=== PATIENT | female | born 1945 | race Caucasian/White ===

== ENCOUNTER 2016-04-29 15:09 | Emergency (ER) | payer MEDICARE, BC ==
[2016-04-29] MEDS ORDERED: NS 0.9% 1000 ML* 1,000 ML IV ONE (16:07)
[2016-04-29] MEDS ORDERED: Ondansetron INJ* 2 MG/ML VIAL IV ONE (16:08)
[2016-04-29] MEDS ORDERED: Morphine INJ* 4 MG/ML 1 ML CARPUJECT IV ONE (16:08)
--- NOTE | 2016-04-29 17:56 | ED ---
Abdominal Pain/Female - HPI Summary HPI Summary: The patient is a 71 year old female presenting to ED for complaint of generalized abdominal pain and nausea x4 days. Admits to decreased PO intake with piece of toast eaten at breakfast today. Friday experienced chills, but denies known fever. Denies nasal symptoms, sore throat, cough, shortness of breath, chest pain, neck or back pain, vomiting, diarrhea, dysuria, hematuria, change in voiding, vaginal complaint. History of HTN, pulmonary stenosis, and depression. Right ankle surgery. Denies FH. PCP: Dr. Weber. SH: . Lives independently at home. - History of Current Complaint Chief Complaint: EDAbdPain Stated Complaint: ABD PAIN,NAUSEA-SENT FROM [facility] Time Seen by Provider: 04/29/16 16:06 Pain Intensity: 5 Allergies/Adverse Reactions: Allergies Allergy/AdvReac Type Severity Reaction Status Date / Time Pregabalin [From Lyrica] Allergy Dizziness Verified 04/29/16 15:30 Lactose Intolerance (GI) AdvReac Intermediate GI Upset Verified 04/29/16 15:30 PMH/Surg Hx/FS Hx/Imm Hx Endocrine/Hematology History: Denies: Hx Diabetes, Hx Thyroid Disease Cardiovascular History: Reports: Hx Hypertension, Other Cardiovascular Problems/ Disorders - congenital pulmonic stenosis Respiratory History: Denies: Hx Asthma, Hx Chronic Obstructive Pulmonary Disease (COPD) GI History: Denies: Hx Ulcer Musculoskeletal History: Denies: Hx Osteoporosis Neurological History: Denies: Hx Seizures Psychiatric History: Reports: Hx Anxiety, Hx Depression - She does not feel like hurting herself or others. Denies: Hx Eating Disorder, Hx Schizophrenia, Hx Bipolar Disorder, Hx of Violent Episodes Against Others - Surgical History Surgery Procedure, Year, and Place: 15 years ago - [place]. 1995Right Ankle repair - pins Infectious Disease History: No Infectious Disease History: Denies: Hx Clostridium Difficile, Hx Hepatitis, Hx Human Immunodeficiency Virus (HIV), Hx of Known/Suspected MRSA, Hx Shingles, Hx Tuberculosis, Hx Known/ Suspected VRE, Hx Known/Suspected VRSA, History Other Infectious Disease, Traveled Outside the [place] in Last 30 Days - Family History Known Family History: Positive: None - Social History Alcohol Use: None Hx Substance Use: No Substance Use Type: Reports: None Hx Tobacco Use: Yes Smoking Status (MU): Former Smoker Review of Systems Positive: Chills. Negative: Fever ENT: Negative Negative: Sore Throat, Nasal Discharge Cardiovascular: Negative Negative: Chest Pain Respiratory: Negative Negative: Shortness Of Breath, Cough Positive: Abdominal Pain, Nausea. Negative: Vomiting, Diarrhea Genitourinary: Negative Negative: dysuria, frequency, flank pain, hematuria Musculoskeletal: Negative Negative: Arthralgia, Myalgia All Other Systems Reviewed And Are Negative: Yes Physical Exam Triage Information Reviewed: Yes Vital Signs On Initial Exam: Initial Vitals Temp Pulse Resp BP Pulse Ox 98.8 F 83 16 142/88 99 04/29/16 15:30 04/29/16 15:30 04/29/16 15:30 04/29/16 15:30 04/29/16 15:30 Vital Signs Reviewed: Yes Appearance: Positive: Well-Appearing, No Pain Distress, Well-Nourished Skin: Positive: Warm, Skin Color Reflects Adequate Perfusion, Dry Eyes: Positive: Other: - Anicteric ENT: Positive: Hearing grossly normal, Other - Oral mucosa moist Neck: Positive: Supple Respiratory/Lung Sounds: Positive: Clear to Auscultation, Breath Sounds Present. Negative: Decreased Breath Sounds, Rales, Rhonchi, Wheezes, Unable to speak in full sentences Cardiovascular: Positive: Normal - radial pulse 2+, RRR, S1, S2. Negative: Murmur, Rub, Tachycardia, Leg Edema Left, Leg Edema Right Abdomen Description: Positive: No Organomegaly, Soft, Other: - mild tenderness epigastric and RLQ; mild tympany RLQ. Negative: CVA Tenderness (R), CVA Tenderness (L), Distended, Guarding, Peritoneal Signs, Pulsatile Mass Bowel Sounds: Positive: Present Neurological: Positive: Normal - awake, alert, following commands, Facial Symmetry, Speech Normal Psychiatric: Positive: Normal AVPU Assessment: Alert - Akira Coma Scale Coma Scale Total: 15 Diagnostics - Vital Signs Vital Signs Temp Pulse Resp BP Pulse Ox 04/29/16 15:30 98.8 F 83 16 142/88 99 - Laboratory Result Diagrams: 04/29/16 17:45 04/29/16 17:45 Lab Statement: Any lab studies that have been ordered have been reviewed, and results considered in the medical decision making process. Re-Evaluation - Re-Evaluation First Eval Re-Evaluation Time: 20:39 Change: Improved Comment: Reported improved pain and nausea. Ambulated independently to bathroom to provide urine sample. Abdominal Pain Fem Course/Dx - Course Course Of Treatment: Discussed labs and imaging results which were grossly unremarkable. CT demonstrates antral gastritis vs partial gastric outlet obstruction. Will give since dose of Reglan and Rx Miralax. Advised to increase PO liquids and fiber. Advised to follow-up with PCP in 3-5 days. - Diagnoses Provider Diagnoses: Nausea, Abdominal pain, Constipation due to slow transit Discharge - Discharge Plan Condition: Stable Disposition: HOME Prescriptions: Polyethylene Glycol 3350* [Miralax*] 17 gm PO DAILY #30 packet Patient Education Materials: Constipation (ED), Abdominal Pain (ED) Referrals: Vanessa Weber MD [Primary Care Provider] - 3 Days
[2016-04-29 18:08] LABS: Hematocrit 40 % (35-47); Hemoglobin 13.3 g/dl (12.0-16.0); Mean Corpuscular HGB Conc 33 g/dl (31-36); Mean Corpuscular Hemoglobin 31 pg (27-31); Mean Corpuscular Volume 93 fL (80-97); Mean Platelet Volume 9 um3 (7.4-10.4); Red Blood Count 4.27 10^6/ul (4.0-5.4); Red Cell Distribution Width 13 % (10.5-15); White Blood Count 8.3 10^3/ul (3.5-10.8)
[2016-04-29 18:26] LABS: Albumin 3.9 g/dL (3.2-5.2); C Reactive Protein 2.62 mg/L (< 5.00); Calcium 8.8 mg/dL (8.6-10.3); EGFR African American 70.1 (>60); EGFR Non-African American 54.5 (>60); Magnesium 2.1 mg/dL (1.9-2.7); Potassium 3.6 mmol/L (3.5-5.0); Total Bilirubin 0.4 mg/dL (0.2-1.0); Total Protein 6.9 g/dL (6.4-8.9)
[2016-04-29] MEDS ORDERED: Iodixanol* (CONTRAST) 320 MG/ML 100 ML SDV IV ONE (18:35)
[2016-04-29] MEDS ORDERED: diPHENhydraMINE IV* 50 MG/ML 1 ml VIAL (BENADRYL) IV ONE (18:53)
--- NOTE | 2016-04-29 19:31 | RAD ---
Indication: Abdominal pain. Contrast: Administered 84.0 ml of VISAPAQUE 320 mgi/ml CT of the abdomen and pelvis was performed after oral and IV contrast administration.1 coronal and sagittal reconstructed images were obtained. The lung bases demonstrate no pleural fluid, nodules or masses. Heart is of normal size without evidence of pericardial effusion. Liver is normal in size. No focal lesions are noted although prominent extrahepatic ducts are noted likely due to postcholecystectomy state. Pancreatic duct is prominent although no evidence of abrupt termination is noted. The pancreas demonstrates no mass or pancreatic duct dilatation. The spleen is normal in size. No adrenal lesions are noted. The kidneys demonstrate symmetric nephrograms without hydronephrosis. No retroperitoneal lymphadenopathy is noted. No dilated loops of bowel are noted. CT of the pelvis demonstrates: To be filled with stool. Small bowel demonstrates no abnormal dilatation. No hernias are noted. Aorta demonstrates no evidence of abdominal aortic aneurysm. No dilated loops of bowel are noted. The uterus and ovaries are unremarkable. There is some distention of the stomach. There may be some wall thickening of the gastric antrum and the possibility of antral gastritis should BE considered. There is relative paucity of contrast in the duodenum and the possibility of a partial gastric outlet obstruction should BE considered.. IMPRESSION: NO ABNORMAL MASSES OR FLUID COLLECTIONS ARE IDENTIFIED.??THERE IS A MODERATELY DILATED STOMACH WITH A COLLAPSED DESCENDING DUODENUM. MILD WALL THICKENING OF THE GASTRIC ANTRUM IS PRESENT. POSSIBILITY OF ANTRAL GASTRITIS WITH PARTIAL DELAYED EMPTYING OF THE STOMACH OR PARTIAL GASTRIC OUTLET OBSTRUCTION SHOULD BE CONSIDERED.
--- NOTE | 2016-04-29 20:09 | ED ---
Jazmine Warren Anna, scribed for Mariam Baptiste MD on 04/29/16 at 1619 . Progress - Progress Note Progress Note: Patient is a 71 y/o female coming to [facility] presenting with nausea that began several days ago. She additionally reports abdominal pain and general weakness. Denies diarrhea and emesis. She had bronchitis two weeks ago. Labs, EKG, and CT abd/pelvis ordered. Course/Dx - Diagnoses Provider Diagnoses: Nausea The documentation as recorded by the Jazmine guidry Anna accurately reflects the service I personally performed and the decisions made by , Mariam Baptiste MD.
[2016-04-29] MEDS ORDERED: Metoclopramide TAB* 10 MG PO ONE (20:38)
[2016-04-29 21:16] LABS: Urine Bacteria Absent (Absent); Urine Bilirubin Negative (Negative); Urine Glucose Negative (Negative); Urine Nitrite Negative (Negative)
[2016-04-29 21:46] VITALS: BP 120/68
== END 2016-04-29 21:45 | disposition home or self-care (01) ==
LOC: ED 15:09
DX: R11.0 Nausea (principal); I10 Essential (primary) hypertension; F32.9 Major depressive disorder, single episode, unspecified; Z87.891 Personal history of nicotine dependence; R10.9 Unspecified abdominal pain; K59.00 Constipation, unspecified
CPT/HCPCS: 36415; 74177; 80053; 81003; 81015; 83605; 83690; 83735; 85025; 86140; 96374; 96375; 99283; J1200; J2270; J2405; Q9967

== ENCOUNTER 2016-11-02 18:21 | Emergency (ER) | payer MEDICARE, BC ==
[2016-11-02 18:27] VITALS: BP 152/84
[2016-11-02] MEDS ORDERED: Cephalexin CAP* 500 MG PO ONE (19:58)
--- NOTE | 2016-11-02 21:45 | UC ---
Stiven Warren Thomas, scribed for Domitila Gallo DO on 11/02/16 at 1921 . Complaint Female HPI - HPI Summary HPI Summary: The pt is a 72 y/o F presenting to E c/o dysuria, urinary frequency, and back pain for the past 5 days. The pain is described as burning and is rated 5/10. The patient has treated the pain with nothing CLOTH CLASSER. Her urine is cloudy. Pt additionally c/o possible subjective fever and abd pain (very minor). Pt denies N/V, recent confusion, and unsteady gait. She says that she waited 5 days because her is in hospice and has been busy and she thought her back pain might have resulted rom 3 days of vigorous gardening. PMHx: HTN. She also has a Hx of hematuria. PSHx: cholecystectomy, R ankle repair. SHx: former smoker (4 years), no alcohol use, no illicit drug use. - History Of Current Complaint Chief Complaint: UCGU Stated Complaint: BURNING URINATION Time Seen by Provider: 11/02/16 19:14 Hx Obtained From: Patient Onset/Duration: Lasting Days - 5, Still Present Timing: Constant Severity Currently: Moderate Pain Intensity: 5 Pain Scale Used: 0-10 Numeric Character: Burning Aggravating Factor(s): Urination Alleviating Factor(s): Nothing Associated Signs And Symptoms: Positive: Fever - possible subjective, Back Pain. Negative: Nausea - Allergies/Home Medications Allergies/Adverse Reactions: Allergies Allergy/AdvReac Type Severity Reaction Status Date / Time Pregabalin [From Lyrica] Allergy Dizziness Verified 04/29/16 15:30 Lactose Intolerance (GI) AdvReac Intermediate GI Upset Verified 04/29/16 15:30 PMH/Surg Hx/FS Hx/Imm Hx Previously Healthy: No Cardiovascular History: Hypertension GI/ History: Other Other GI/ History: Hx of hematuria Psychological History: Depression - Surgical History Surgical History: Yes Surgery Procedure, Year, and Place: 15 years ago - [place]. 1995Right Ankle repair - pins Other Surgical History: Right ankle with plates and pins. Gallbladder out. - Family History Known Family History: Positive: Other - POS: ETOH abuse - Social History Occupation: Retired - former nurse Lives: Assisted Living Alcohol Use: None Substance Use Type: None Smoking Status (MU): Former Smoker Review of Systems Constitutional: Fever - possible subjective Skin: Negative Eyes: Negative ENT: Negative Respiratory: Negative Cardiovascular: Negative Gastrointestinal: Abdominal Pain - "very minor" Genitourinary: Dysuria, Frequency, Other - POS: cloudy urine Motor: Negative Neurovascular: Negative Musculoskeletal: Other: - POS: back pain Neurological: Negative Psychological: Negative All Other Systems Reviewed And Are Negative: Yes Physical Exam Triage Information Reviewed: Yes Appearance: Well-Appearing, No Pain Distress, Well-Nourished Vital Signs: Initial Vital Signs Temp 98.6 F 11/02/16 18:24 Pulse 70 11/02/16 18:24 Resp 18 11/02/16 18:24 BP 152/84 11/02/16 18:24 Pulse Ox 100 11/02/16 18:24 Vital Signs Reviewed: Yes Eyes: Positive: Conjunctiva Clear. Negative: Discharge ENT: Positive: Hearing grossly normal. Negative: Muffled/hoarse voice Neck exam: Normal Neck: Positive: Supple Respiratory: Positive: Lungs clear, Normal breath sounds, No respiratory distress, No accessory muscle use Cardiovascular: Positive: RRR, No Murmur Abdomen Description: Positive: Soft, Other: - POS: suprapubic tenderness. Negative: CVA Tenderness (R), CVA Tenderness (L), Distended, Guarding Bowel Sounds: Positive: Present Musculoskeletal Exam: Normal Neurological: Positive: Alert, Muscle Tone Normal Psychological Exam: Normal Psychological: Positive: Age Appropriate Behavior Skin Exam: Normal Skin: Positive: Other - Warm, dry, normal color Diagnostics - Laboratory Diagnostic Studies Completed/Ordered: UA reveals 2+ blood, 3+ leukocyte esterase , and was negative for nitrates. During the [facility] course, the urinalysis results did not transfer electronically into [facility]; however, the nurse was able to provide a printout with the above results. The printout was confirmed with matching patient identification. Complaint Female Dx - Course Course Of Treatment: The pt is a 72 y/o F presenting to E c/o dysuria, urinary frequency, and back pain for the past 5 days. She additionally c/o back pain. The pain is described as burning and is rated 5/10. The patient has treated the pain with nothing CLOTH CLASSER. Her urine is cloudy. Pt additionally c/o subjective fever and abd pain (very minor). Pt denies N/V, recent confusion, and unsteady gait. She says that she waited 5 days because her is in hospice and has been busy. PMHx: HTN. She also has a Hx of hematuria. PSHx: cholecystectomy, R ankle repair. SHx: former smoker (4 years), no alcohol use, no illicit drug use. UA reveals 2+ blood, 3+ leukocyte esterase, and was negative for nitrates. During the [facility] course, the urinalysis results did not transfer electronically into [facility]; however, the nurse was able to provide a printout with the above results. A urine culture was also sent. The printout was confirmed with matching patient identification. High blood pressure noted. Patient is diagnosed with UTI. Patient will be discharged home with follow up by PCP. Patient will be prescribed Keflex x10 days and was given her first dose at [facility]. Patient is agreeable to this plan. - Differential Dx/Diagnosis Differential Diagnosis/HQI/PQRI: Renal Colic, Urinary Tract Infection Provider Diagnoses: UTI Discharge - Discharge Plan Condition: Stable Disposition: HOME Prescriptions: Cephalexin CAP* [Keflex CAP*] 500 mg PO BID #20 cap Patient Education Materials: Urinary Tract Infection in Women (ED) Referrals: Vanessa Weber MD [Primary Care Provider] - (FOLLOW UP IN 2 DAYS IF NOT IMPROVING. ) Additional Instructions: CEPHALEXIN: The antibiotic you've been prescribed is a member of the cephalosporin class. This type of antibiotic covers a wide variety of infections, including those of the skin, lungs, and urinary tract. It's useful for staph infections. This antibiotic is slightly similar to the penicillin family. In rare cases , a person who is allergic to penicillin will also be allergic to this medication. If you have had a severe allergic reaction to penicillin, and have not taken this antibiotic since that time, notify your doctor. Antibiotics which cover many germs ("broad spectrum" antibiotics) are more likely to cause diarrhea or "yeast" infections. Women prone to vaginal yeast problems may suffer an attack after taking this antibiotic. In infants, oral thrush (white spots "stuck" on the cheek) or yeast diaper rash may result. See your doctor if these problems occur. Call at once if you develop itching, hives , shortness of breath, or lightheadedness. ANYTIME YOU TAKE AN ANTIBIOTIC, IT IS IMPORTANT TO REPLENISH THE BODY'S SUPPLY OF "GOOD BACTERIA." YOU CAN GET GOOD BACTERIA FROM HIGH QUALITY CULTURED FOODS SUCH LOCAL YOGURT, SOUR KRAUT, CARLOTTA ACACIA, NATURALLY FERMENTED PICKLES AND PROBIOTIC DRINKS. YOU CAN ALSO GET GOOD BACTERIA FROM A PROBIOTIC SUPPLEMENT. The documentation as recorded by the scribeStiven Thomas accurately reflects the service I personally performed and the decisions made by me, Domitila Gallo DO.
--- NOTE | 2016-11-06 20:58 | UC ---
Progress - Progress Note Progress Note: URINE CX (-). CONTINUE ABX. FOLLOW UP WITH PCP/ER IF WORSE.
== END 2016-11-02 20:09 | disposition home or self-care (01) ==
LOC: UCEAST 18:21
DX: N39.0 Urinary tract infection, site not specified (principal); I10 Essential (primary) hypertension; F32.9 Major depressive disorder, single episode, unspecified; Z87.891 Personal history of nicotine dependence; Z91.011 Allergy to milk products
CPT/HCPCS: 87086; 99212; A9270-GY; G0463

== ENCOUNTER 2017-04-23 17:47 | Emergency (ER) | payer MEDICARE, BC ==
[2017-04-23 17:56] VITALS: BP 137/79
--- NOTE | 2017-04-23 18:22 | UC ---
Ear Complaint HPI - HPI Summary HPI Summary: pt with mild sinus congestion. Pt states has had crackling sound in left ear x 2 days. Pt state earlier today had a "pop" sound. pt states since this time has a ringing sound. No fever, chills. No sore throat. mild PND. No cp, sob, abd pain No n/v/d. No analgesia taken Pt's medications reviewed this visit - History of Current Complaint Chief Complaint: UCEar Stated Complaint: EAR COMPLAINT Time Seen by Provider: 04/23/17 18:06 Hx Obtained From: Patient Onset/Duration: Gradual Onset Severity Initially: Mild Severity Currently: Moderate Pain Intensity: 5 Pain Scale Used: 0-10 Numeric Associated Signs/Symptoms: Negative: Discharge - Allergies/Home Medications Allergies/Adverse Reactions: Allergies Allergy/AdvReac Type Severity Reaction Status Date / Time lactose Allergy Nausea And Verified 04/23/17 17:57 Vomiting pregabalin [From Lyrica] Allergy Hives Verified 04/23/17 17:57 Home Medications: Home Medications Aspirin [Aspirin Childrens 81 MG] 81 mg PO DAILY 04/23/17 [History Confirmed ] Multivitamin with Minerals [One-A-Day Maximum Formula] 1 tab PO DAILY 04/23/17 [ History Confirmed 04/23/17] PMH/Surg Hx/FS Hx/Imm Hx Previously Healthy: Yes Endocrine History: Hyperthyroidism - Surgical History Surgical History: Yes Surgery Procedure, Year, and Place: 15 years ago - [place]. 1995Right Ankle repair - pins Other Surgical History: Right ankle with plates and pins. Gallbladder out. - Family History Known Family History: Positive: None, Other - POS: ETOH abuse - Social History Occupation: Retired Lives: Alone Alcohol Use: None Substance Use Type: None Smoking Status (MU): Former Smoker Review of Systems Constitutional: Negative Eyes: Negative ENT: Ear Ache, Nasal Discharge, Sinus Congestion All Other Systems Reviewed And Are Negative: Yes Physical Exam Triage Information Reviewed: Yes Appearance: Well-Appearing, No Pain Distress, Well-Nourished, Other: - Pt intermittently weepy- reminiscing recent passing appropriate Vital Signs: Initial Vital Signs Temp 97.4 F 04/23/17 17:52 Pulse 59 04/23/17 17:52 Resp 17 04/23/17 17:52 BP 137/79 04/23/17 17:52 Pulse Ox 100 04/23/17 17:52 Vital Signs Reviewed: Yes Eye Exam: Normal Eyes: Positive: Conjunctiva Clear ENT: Positive: Pharynx normal, Other - Right TM wnl Left TM + mild fluid, no erythema, no retraction, no buldge turbinates inflammed and boggy mild PND no exudate, no erythema Dental Exam: Normal Neck exam: Normal Neck: Positive: Supple, Nontender Respiratory Exam: Normal Respiratory: Positive: Chest non-tender, Lungs clear, Normal breath sounds, No respiratory distress, No accessory muscle use Cardiovascular Exam: Normal Cardiovascular: Positive: RRR, No Murmur, Pulses Normal Abdominal Exam: Normal Abdomen Description: Positive: Nontender, No Organomegaly, Soft Bowel Sounds: Positive: Present Musculoskeletal Exam: Normal Musculoskeletal: Positive: Strength Intact Neurological Exam: Normal Neurological: Positive: Alert Psychological Exam: Normal Skin Exam: Normal Ear Complaint Course/Dx - Course Course Of Treatment: d/w with patient at length. fluid in ear - not clear infection. will start flonase and abx. no skin lesioin or concern for shingles - d/w pt. hydrate. recommend ENT f.u if persists. comfort and agreement with plan. return precautions discussed - Differential Dx/Diagnosis Provider Diagnoses: left ear fluid. tinnitius Discharge - Discharge Plan Condition: Stable Disposition: HOME Prescriptions: Amoxicillin PO (*) [Amoxicillin 875 MG (*)] 875 mg PO BID #14 tab Fluticasone NASAL SPRAY 50MCG* [Flonase NASAL SPRAY 50MCG*] 2 spray BOTH NARES DAILY #1 btl Patient Education Materials: Ear Infection (ED), Tinnitus (ED) Referrals: Jose Alejandro Renee MD [Medical Doctor] - As Soon As Possible Pauline Palacio MD [Medical Doctor] - Additional Instructions: As discussed, you have some fluid in your left ear which may represent and early ear infection. It is possible your ringing and popping sound is related to this It is recommended you use the nasal spray daily as prescribed Take antibiotics as until gone Okay to take Tylenol every hours as needed for discomfort If you symptoms continue, contact the ENT providers for a follow-up appointment You may also follow-up with your primary care provider
== END 2017-04-23 19:04 | disposition home or self-care (01) ==
LOC: UCEAST 17:47
DX: H93.8X2 Other specified disorders of left ear (principal); H93.12 Tinnitus, left ear; E05.90 Thyrotoxicosis, unspecified without thyrotoxic crisis or storm; Z90.49 Acquired absence of other specified parts of digestive tract; Z88.8 Allergy status to other drugs, medicaments and biological substances; Z87.891 Personal history of nicotine dependence
CPT/HCPCS: 99212; G0463

== ENCOUNTER 2019-03-01 14:30 | Emergency (ER) | payer MEDICARE, BC ==
--- OUTSIDE RECORDS SUMMARY | 2019-03-01 14:38 | XMS REPORT | Continuity of Care Document ---
:1945 External Reference #:[id number] Author Name James Mandelon, OD Address [address] [place] [address] Care Team Providers Name Role Phone Vanessa Weber MD - Internal Medicine Care Team Information Fashion Designer Problems Active Problems Provider Date Vitreous degeneration Ganesh Walsh M.D. Onset: 01/06/2014 Nuclear senile cataract Ganesh Walsh M.D. Onset: 01/06/2014 Lens Replaced By Other Means Ganesh Walsh M.D. Onset: 01/06/2014 Pain in eye James Candelario O.D. Onset: 04/10/2015 Other retinoschisis and retinal cysts, right James Candelario O.D. Onset: 03/2015 eye Injury of conjunctiva and corneal abrasion James Candelario O.D. 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: 07/17/2016 Social History Type Date Description Comments Sex Unknown ETOH Use Denies alcohol use Tobacco Use Start: Unknown End: Unknown Patient is a former smoker Smoking Status Reviewed: 01/06/19 Patient is a former smoker Allergies, Adverse Reactions, Alerts Active Allergies Reaction Severity Comments Date NKDA 01/04/2014 Seasonal 01/06/2014 Medications Active Medications SIG Qnty Indications Ordering Provider Date Lisinopril Unknown Tablets Ambien Unknown Tablets Remeron Soltab Unknown 15mg Tablets Dispers Lexapro 1 by mouth every Unknown 20mg Tablets day Immunizations Description No Information Available Vital Signs Date Vital Result Comment 01/06/2019 11:39am Intraocular Pressure Right Eye 18 mmHg Intraocular Pressure Left Eye 18 mmHg 07/17/2016 9:43am Intraocular Pressure Right Eye 19 mmHg Intraocular Pressure Left Eye 18 mmHg Results Description No Information Available Procedures Date Code Description Status 01/06/2019 73531 Ophthalmoscopy Subsequent Completed 01/06/2019 23163 Refraction Completed 01/06/2019 56501 Eye Exam Est Comprehensive Completed Medical Devices Description No Information Available Encounters Description No Information Available Assessments Date Code Description Provider 01/06/2019 H52.4 Presbyopia James Sadler, OD 01/06/2019 H25.13 Age-related nuclear cataract, bilateral James Sadler, OD 01/06/2019 H33.193 Other retinoschisis and retinal cysts, bilateral James Sadler, OD 01/06/2019 H43.813 Vitreous degeneration, bilateral James Sadler, OD Plan of Treatment 01/06/2019 - James Sadler, ODH52.4 [id number] Age-related nuclear cataract, [id number] Other retinoschisis and retinal cysts, [id number] Vitreous degeneration, bilateralFollow up:yearly full, sooner PRN Functional Status Description No Information Available Mental Status Description No Information Available Referrals Description No Information Available
[2019-03-01 14:52] VITALS: BP 132/81
--- NOTE | 2019-03-01 14:56 | UC ---
FLU HPI - HPI Summary HPI Summary: 73 yo female presents with fatigue. She tells me that over the last 2-3 days she has been feeling very fatigued, short of breath, and nauseous. Today she feels dizzy. She was supposed to babysit her grandchild today, but did not have the energy to do so. She mentions that she had bronchitis about 2-3 weeks ago and was treated with doxycycline and her symptoms resolved. She is having a slight cough now. Denies fever, sinus symptoms, sore throat, chest pain, abdominal pain, vomiting, diarrhea, dysuria, headache, numbness, tingling. She mentions she has a hx of pulmonary valve stenosis, but has never had an issue with this and is congenital per pt. - History of Current Complaint Chief Complaint: UCGeneralIllness Stated Complaint: WEAK, DIZZY, CONGESTION Time Seen by Provider: 03/01/19 14:54 Hx Obtained From: Patient Onset/Duration: Sudden Onset Severity Currently: Moderate Severity Initially: Moderate Pain Intensity: 0 - Allergy/Home Medications Allergies/Adverse Reactions: Allergies Allergy/AdvReac Type Severity Reaction Status Date / Time aspirin Allergy See Comment Verified 03/01/19 14:44 lactose Allergy Nausea And Verified 03/01/19 14:44 Vomiting pregabalin [From Lyrica] Allergy Hives Verified 03/01/19 14:44 Home Medications: Home Medications Zolpidem TAB* [Ambien TAB*] 10 mg PO BEDTIME PRN 03/01/19 [History Confirmed ] PMH/Surg Hx/FS Hx/Imm Hx - Additional Past Medical History Additional PMH: Pulmonic stenosis Cardiovascular History: Hypertension Psychological History: Anxiety - Surgical History Surgical History: Yes Surgery Procedure, Year, and Place: 15 years ago - [place]. 1995Right Ankle repair - pins Other Surgical History: Right ankle with plates and pins. Gallbladder out. - Family History Known Family History: Positive: None, Other - POS: ETOH abuse Family History: neg: Breast CA - Social History Alcohol Use: None Substance Use Type: None Smoking Status (MU): Former Smoker Review of Systems All Other Systems Reviewed And Are Negative: No Constitutional: Positive: Fatigue Skin: Positive: Negative Eyes: Positive: Negative ENT: Positive: Negative Respiratory: Positive: Shortness Of Breath Cardiovascular: Positive: Negative Gastrointestinal: Positive: Negative Genitourinary: Positive: Negative Motor: Positive: Negative Neurovascular: Positive: Negative Musculoskeletal: Positive: Negative Neurological: Positive: Other - Dizziness Psychological: Positive: Negative Physical Exam - Summary Physical Exam Summary: GENERAL: NAD. Appears fatigued. SKIN: No rashes, sores, or open wounds. HEENT: Head: AT/NC Eyes: PERRLA. EOM intact. Conjunctiva clear without inflammation or discharge. Ears: Hearing grossly normal. TMs intact, no bulging, erythema, or edema. Nose: Nasal mucosa pink and moist. NTTP maxillary and frontal sinus. Throat: Posterior oropharynx without exudates, erythema, or tonsillar enlargement. Uvula midline. NECK: Supple. Nontender. No lymphadenopathy. CHEST: CTAB. No r/r/w. Breathing comfortably, but slightly shallow and increased rate. CV: Murmur over left 2nd ICS. RRR. Pulses intact. Brisk cap refill. ABDOMEN: Soft. NTTP. No CVA tenderness. Bowel sounds present MSK: FROM and 5/5 strength throughout. No edema. NEURO: Alert. PSYCH: Age appropriate behavior. Triage Information Reviewed: Yes Vital Signs: Initial Vital Signs Temp 98.5 F 03/01/19 14:47 Pulse 65 03/01/19 14:47 Resp 18 03/01/19 14:47 BP 132/81 03/01/19 14:47 Pulse Ox 98 03/01/19 14:47 Laboratory Tests 03/01/19 03/01/19 14:57 15:00 POC Urine Color Yellow POC Urine Clarity Clear POC Urine pH 7.5 POC Ur Specif [place] 1.010 POC Urine Protein Negative POC Ur Glucose (UA) Negative POC Urine Ketones Negative POC Urine Blood 1+ A POC Urine Nitrite Negative POC Urine Bilirubin Negative POC Urine Urobilinogen 0.2 POC U Leukocyte Esteras Negative Influenza A (Rapid) Negative Influenza B (Rapid) Negative Vital Signs Reviewed: Yes Diagnostics - Radiology CXR Radiology Interpretation Completed By: Radiologist Summary of Radiographic Findings: IMPRESSION: #. Stigmata of probable obstructive lung disease. No evidence for pneumonia. - EKG Summary of EKG Findings: Sinus bradycardia 59bpm. No STEMI as read by Dr. Kaiser. Compared to 06/2014 Flu Course/Dx - Course Course Of Treatment: EKG and CXR as above. UA negative. Her exam is WNL. Given her symptoms I recommended she got to the ER for further evaluation of her fatigue, dizziness, and shortness of breath. I recommended that she go by ambulance given her symptoms, but she declined. I discussed that she should not be driving in her condition. I believe the patient is clinically sober, free from distracting injury, appears to have insight and reasoning and, in my judgment, has capacity to make decisions. I have told the patient if they do not seek eval/treatment in the ED their condition could get much worse, could become critically ill and suffer disability and possibly . She continued to decline ambulance transfer. Pt left AMA. - Differential Dx/Diagnosis Differential Diagnosis/HQI/PQRI: Influenza, Pneumonia, Other - CHF Provider Diagnosis: Fatigue, SOB (shortness of breath) Discharge ED - Sign-Out/Discharge Documenting (check all that apply): Patient Departure All imaging exams completed and their final reports reviewed: Yes - Discharge Plan Condition: Stable Disposition: AGAINST MEDICAL ADVICE Referrals: Pauline Palacio MD [Primary Care Provider] - Additional Instructions: Please go to the ER for further evaluation of your weakness, shortness of breath , and dizziness. Your chest x-ray, EKG, urinalysis, and flu test were negative/normal in the Urgent Care. - Billing Disposition and Condition Condition: STABLE Disposition: Against Medical Advice
[2019-03-01 15:12] LABS: Influenza A Molecular NEGATIVE (Negative); Influenza B Molecular NEGATIVE (Negative)
== END 2019-03-01 15:36 | disposition left against medical advice (07) ==
LOC: UCEAST 14:30
DX: R53.83 Other fatigue (principal); R06.02 Shortness of breath; R42 Dizziness and giddiness; R11.0 Nausea; R05 Cough; I10 Essential (primary) hypertension; Z88.6 Allergy status to analgesic agent; Z88.8 Allergy status to other drugs, medicaments and biological substances; Z91.011 Allergy to milk products; Z87.891 Personal history of nicotine dependence; Z87.74 Personal history of (corrected) congenital malformations of heart and circulatory system; R31.9 Hematuria, unspecified; F41.9 Anxiety disorder, unspecified; F32.9 Major depressive disorder, single episode, unspecified; K59.00 Constipation, unspecified
CPT/HCPCS: 71046; 81003; 99212; G0463

== ENCOUNTER 2019-03-01 16:08 | Emergency (ER) | payer MEDICARE, BC ==
--- NOTE | 2019-03-01 16:37 | ED ---
Complex/Multi-Sys Presentation - HPI Summary HPI Summary: 73 year old F arriving via private car from [facility] complains of worsening fatigue, dizziness/lightheadedness, mild difficulty breathing for several days. Was seen at [facility] earlier today where she had negative CXR and flu. Hx congenital heart defect. Was referred to ED for further workup and treatment. Had bronchitis and sinusitis 1 month ago. Reports 10 pound weight loss in the last month d/t decreased appetite. Had diarrhea and nausea yesterday. No vomiting, abdominal pain, fever. Was diaphoretic last night. States she sometimes feels unable to take a deep breath. No cough, no CP. - History Of Current Complaint Chief Complaint: EDWeakness Time Seen by Provider: 03/01/19 16:20 Hx Obtained From: Patient Onset/Duration: Lasting Days, Still Present Timing: Constant Severity Currently: None Aggravating Factor(s): Nothing Alleviating Factor(s): Nothing - Allergies/Home Medications Allergies/Adverse Reactions: Allergies Allergy/AdvReac Type Severity Reaction Status Date / Time aspirin Allergy See Comment Verified 03/01/19 16:18 lactose Allergy Nausea And Verified 03/01/19 16:18 Vomiting pregabalin [From Lyrica] Allergy Hives Verified 03/01/19 16:18 PMH/Surg Hx/FS Hx/Imm Hx Endocrine/Hematology History: Denies: Hx Diabetes, Hx Thyroid Disease Cardiovascular History: Reports: Hx Hypertension, Other Cardiovascular Problems/ Disorders - congenital pulmonic stenosis Respiratory History: Denies: Hx Asthma, Hx Chronic Obstructive Pulmonary Disease (COPD) GI History: Denies: Hx Ulcer Musculoskeletal History: Denies: Hx Osteoporosis Neurological History: Denies: Hx Seizures Psychiatric History: Reports: Hx Anxiety, Hx Depression - She does not feel like hurting herself or others. Denies: Hx Eating Disorder, Hx Schizophrenia, Hx Bipolar Disorder, Hx of Violent Episodes Against Others - Surgical History Surgery Procedure, Year, and Place: 15 years ago - [place]cyste[place]. 1995Right Ankle repair - pins Infectious Disease History: No Infectious Disease History: Denies: Hx Clostridium Difficile, Hx Hepatitis, Hx Human Immunodeficiency Virus (HIV), Hx of Known/Suspected MRSA, Hx Shingles, Hx Tuberculosis, Hx Known/ Suspected VRE, Hx Known/Suspected VRSA, History Other Infectious Disease, Traveled Outside the [place] in Last 30 Days - Family History Known Family History: Positive: Other - POS: ETOH abuse Family History: neg: Breast CA - Social History Alcohol Use: None Hx Substance Use: No Substance Use Type: Reports: None Hx Tobacco Use: Yes Smoking Status (MU): Former Smoker Review of Systems Positive: Fatigue, Skin Diaphoresis. Negative: Fever Positive: Shortness Of Breath Positive: Diarrhea, Nausea, Other - 10 pound weight loss, decreased appetite. Negative: Abdominal Pain, Vomiting Neurological: Other - Dizziness All Other Systems Reviewed And Are Negative: Yes Physical Exam - Summary Physical Exam Summary: Constitutional: Well-developed, Well-nourished, Alert. (-) Distressed Skin: Warm, Dry HENT: Normocephalic; Atraumatic Eyes: Conjunctiva normal Neck: Musculoskeletal ROM normal neck. (-) JVD, (-) Stridor, (-) Nuchal rigidity Cardio: Rhythm regular, rate normal, Heart sounds normal; Intact distal pulses; Radial pulses are 2+ and symmetric. (-) Murmur Pulmonary/Chest wall: Effort normal. (-) Respiratory distress, (-) Wheezes, (-) Rales Abd: Soft, (-) tenderness, (-) Distension, (-) Guarding, (-) Rebound Musculoskeletal: (-) Edema Lymph: (-) Cervical adenopathy Neuro: Alert, Oriented x3 Psych: Mood and affect Normal Triage Information Reviewed: Yes Vital Signs On Initial Exam: Initial Vitals Temp Pulse Resp BP Pulse Ox 98 F 74 16 144/79 96 03/01/19 16:14 03/01/19 16:14 03/01/19 16:14 03/01/19 16:14 03/01/19 16:14 Vital Signs Reviewed: Yes Procedures - Sedation Patient Received Moderate/Deep Sedation with Procedure: No Diagnostics - Vital Signs Vital Signs Temp Pulse Resp BP Pulse Ox 03/01/19 16:14 98 F 74 16 144/79 96 - Laboratory Result Diagrams: 03/01/19 16:29 03/01/19 16:29 Lab Statement: Any lab studies that have been ordered have been reviewed, and results considered in the medical decision making process. - EKG 1631 Cardiac Rate: NL - 62 BPM EKG Rhythm: Sinus Rhythm Summary of EKG Findings: T wave inversions in V1. When compared to EKG from 2015, no significant change. ED physician has reviewed and interpreted this EKG. Re-Evaluation - Re-Evaluation First Eval Re-Evaluation Time: 17:45 Comment: UA shows blood in urine. will order CT Complex Multi-Symp Course/Dx Course Of Treatment: 73 y/o F w hx pulmonic stenosis who presents with fatigue, dyspnea and feeling unwell. - Negative chest x-ray for pneumonia or pulmonary process, flu negative. 100% on RA, lungs CTAB. EKG here unchanged, troponin negative. Do not suspect acute cardiopulmonary process. - no signs of infection on labs. - Labs notable for microscopic hematuria, we'll check a CT the abdomen and pelvis. - Diagnoses Provider Diagnoses: Fatigue, Hematuria Discharge ED - Sign-Out/Discharge Documenting (check all that apply): Sign-Out Patient Signing out patient TO: Wagner Mcgarth - awaiting ABD/PEL CT - Discharge Plan Condition: Stable Disposition: HOME Patient Education Materials: Hematuria (ED) Referrals: Morgan Aldana MD [Medical Doctor] - Pauline Palacio MD [Primary Care Provider] - Additional Instructions: We did not find a cause for your symptoms today, the only abnormality of concern is some blood in your urine. Whether this is related to your problems recently or not is not yet clear, but I do think you should see a urologist and have given you contact information for Dr. Aldana, a urologist here in [place]. People in your age group really should give a more comprehensive workup for blood in the urine, which usually includes an office procedure called a cystoscopy. Dr. Aldana can talk to you more about what that involves and what he would be looking for. Even if this turns out to be an incidental finding and not causing your symptoms it should be looked into. Of course, if you have already been evaluated for hematuria this all may not be necessary. - Billing Disposition and Condition Condition: STABLE Disposition: Home - Attestation Statements Document Initiated by Jodie: Yes Documenting Scribe: Cecilia Kaplan Provider For Whom Jodie is Documenting (Include Credential): Jennifer Giordano MD Scribe Attestation: Cecilia Warren, scribed for Jennifer Giordano MD on 03/02/19 at 0754. Scribe Documentation Reviewed: Yes Provider Attestation: The documentation as recorded by the Cecilia guidry Eusebio accurately reflects the service I personally performed and the decisions made by me, Jennifer Giordano MD Status of [place] Document: Viewed
[2019-03-01 16:38] LABS: ABS Basophils 0.1 10^3/ul (0-0.2); ABS Eosinophils 0.2 10^3/ul (0-0.6); ABS Monocytes 0.8 10^3/ul (0-0.8); ABS Neutrophils 5.8 10^3/ul (1.5-7.7); Eosinophil % 1.8 %; Hematocrit 40 % (35-47); Hemoglobin 13.7 g/dL (12.0-16.0); Mean Corpuscular HGB Conc 35 g/dL (31-36); Mean Corpuscular Hemoglobin 33 pg (27-31); Mean Corpuscular Volume 96 fL (80-97); Mean Platelet Volume 9.5 fL (7.4-10.4); Nucleated Red Blood Cells % 0.1; Platelet Count 268 10^3/uL (150-450); Red Blood Count 4.16 10^6 /uL (3.70-4.87); Red Cell Distribution Width 14 % (10-15); White Blood Count 11.9 10^3/uL (3.5-10.8)
[2019-03-01 16:57] LABS: Troponin I 0.01 ng/mL (<0.03)
[2019-03-01 16:58] LABS: Albumin 4.3 g/dL (3.2-5.2); Albumin/Globulin Ratio 1.5 (1-3); BUN/Creatinine Ratio 17.2 (8-20); Calcium 9.2 mg/dL (8.6-10.3); EGFR African American 66.3 (>60); EGFR Non-African American 54.8 (>60); Globulin 2.9 g/dL (2-4); Potassium 3.8 mmol/L (3.5-5.0); Total Bilirubin 0.4 mg/dL (0.2-1.0); Total Protein 7.2 g/dL (6.4-8.9)
[2019-03-01 17:20] LABS: Urine Appearance Cloudy; Urine Bilirubin Negative (Negative); Urine Blood 1+ (Negative); Urine Color Amber; Urine Glucose Negative (Negative); Urine Ketones Trace (Negative); Urine Nitrite Negative (Negative); Urine Protein Negative (Negative); Urine Specific Gravity 1.017 (1.010-1.030); Urine Urobilinogen Negative (Negative)
[2019-03-01 17:21] LABS: Urine Bacteria Absent (Absent); Urine Red Blood Cell 3+(>10/hpf) (Absent); Urine Squamous Epithelial Cell Present (Absent); Urine White Blood Cell Trace(0-5/hpf) (Absent)
[2019-03-01] MEDS ORDERED: Iodixanol* (CONTRAST) 320 MG/ML 100 ML SDV IV ONE (17:52)
[2019-03-01 17:55] LABS: TSH (Thyroid Stimulating Horm) 1.36 mcIU/mL (0.34-5.60)
[2019-03-01] MEDS ORDERED: NS 0.9% 1000 ML** 1,000 ML IV ONE (18:51)
--- NOTE | 2019-03-01 19:09 | ED ---
Progress - Progress Note Progress Note: Patient is received as a sign out [place] [address]/[address] ABD/PEL CT ABD/PEL IMPRESSION: No renal masses hydronephrosis or perinephric abnormalities. Question minimal bladder wall thickening. Severe constipation. Status post cholecystectomy. THIS REPORT WAS REVIEWED BY ED PHYSICIAN. 1936 - CT was discussed with the patient, patient discharged to home and will follow up with urologist. Re-Evaluation - Re-Evaluation First Eval Re-Evaluation Time: 19:37 Comment: CT was discussed with the patient, patient discharged to home and will follow up with urologist. Course/Dx - Course Course Of Treatment: Patient is received as a sign out from Dr. [place] [address]/01/[address] ABD/PEL. CT ABD/PEL IMPRESSION: No renal masses hydronephrosis or perinephric abnormalities. Question minimal. bladder wall thickening. Severe constipation. Status post cholecystectomy. 1936 - CT was discussed with the patient, patient discharged to home and will follow up with urologist. - Diagnoses Provider Diagnoses: Fatigue, Hematuria Discharge ED - Sign-Out/Discharge Documenting (check all that apply): Patient Departure - discharge , Receiving Sign-Out Receiving patient FROM: Jennifer Giordano - Discharge Plan Condition: Stable Disposition: HOME Patient Education Materials: Hematuria (ED) Referrals: Morgan Aldana MD [Medical Doctor] - Pauline Palacio MD [Primary Care Provider] - Additional Instructions: We did not find a cause for your symptoms today, the only abnormality of concern is some blood in your urine. Whether this is related to your problems recently or not is not yet clear, but I do think you should see a urologist and have given you contact information for Dr. Aldana, a urologist here in [place]. People in your age group really should give a more comprehensive workup for blood in the urine, which usually includes an office procedure called a cystoscopy. Dr. Aldana can talk to you more about what that involves and what he would be looking for. Even if this turns out to be an incidental finding and not causing your symptoms it should be looked into. Of course, if you have already been evaluated for hematuria this all may not be necessary. - Billing Disposition and Condition Condition: STABLE Disposition: Home - Attestation Statements Document Initiated by Scribe: Yes Documenting Scribe: FAITH HILLIARD Provider For Whom Jodie is Documenting (Include Credential): BAYRON MCGRATH MD Scribe Attestation: I, FAITH HILLIARD, scribed for BAYRON MCGRATH MD on 03/02/19 at 0442. Scribe Documentation Reviewed: Yes Provider Attestation: The documentation as recorded by the FAITH guidry accurately reflects the service I personally performed and the decisions made by me, BAYRON MCGRATH MD Status of Scribe Document: Viewed
[2019-03-01 19:58] VITALS: BP 148/74
== END 2019-03-01 20:00 | disposition home or self-care (01) ==
LOC: ED 16:08
DX: R53.83 Other fatigue (principal); R31.9 Hematuria, unspecified; I10 Essential (primary) hypertension; F41.9 Anxiety disorder, unspecified; F32.9 Major depressive disorder, single episode, unspecified; Z87.891 Personal history of nicotine dependence; K59.00 Constipation, unspecified
CPT/HCPCS: 36415; 74177; 80053; 81003; 81015; 84443; 84484; 85025; 87086; 93005; 96360; 99282; Q9967